=== PATIENT | male | born 1970 | race Caucasian/White ===

== ENCOUNTER 2021-09-02 09:30 | Emergency (ER) | payer OTHER ==
[2021-09-02] MEDS ORDERED: Dexamethasone 10 MG/ML SDV IM STA (09:52)
== END 2021-09-02 10:09 | disposition home or self-care (01) ==
LOC: MW.ED 09:30
DX: K12.2 Cellulitis and abscess of mouth (principal); F17.210 Nicotine dependence, cigarettes, uncomplicated
CPT/HCPCS: 96372; 99282; J1100